=== PATIENT | female | born 1995 | race Two or more races ===

== ENCOUNTER 2019-01-16 16:10 | Emergency (ER) | payer MEDICAID ==
[~2019-01-16] VITALS: Ht 160 cm; Wt 91.0 kg
[2019-01-16 16:19] VITALS: BP 114/72
[2019-01-16] MEDS ORDERED: SODIUM CHLORIDE FLUSH 10ML SYR IVF ONE (16:30)
[2019-01-16 17:03] LABS: BASOPHILS # (AUTO) 0.04 x10^3/uL (0-0.1); BASOPHILS % (AUTO) 0 % (0-1); EOSINOPHILS # (AUTO) 0.79 x10^3/uL (0-0.4); EOSINOPHILS % (AUTO) 8 % (1-7); LYMPHOCYTES # (AUTO) 1.46 x10^3/uL (1-3.4); LYMPHOCYTES % (AUTO) 14 % (22-44); MD NO; MEAN CORPUSCULAR HEMOGLOBIN 25.9 pg (27.0-34.8); MEAN CORPUSCULAR HGB CONC 31.7 g/dL (32.4-35.8); MEAN CORPUSCULAR VOLUME 81.7 fL (80-100); MONOCYTES # (AUTO) 0.45 x10^3/uL (0.2-0.8); MONOCYTES % (AUTO) 4 % (2-9); NEUTROPHILS # (AUTO) 7.84 x10^3/uL (1.8-6.8); NEUTROPHILS % (AUTO) 74 % (42-75); PLATELET COUNT 491 x10^3/uL (130-400); RED BLOOD COUNT 5.49 x10^6/uL (3.82-5.3); RED CELL DISTRIBUTION WIDTH 16.4 % (9.6-15.2)
[2019-01-16 17:04] LABS: ALBUMIN 3.8 g/dL (3.4-5.0); ANION GAP 6 mmol/L (5-15); CALCIUM 9.2 mg/dL (8.5-10.1); CHLORIDE 109 mmol/L (98-107); CREATININE 0.81 mg/dL (0.55-1.02)
--- NOTE | 2019-01-16 17:39 | NUR ---
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
--- NOTE | 2019-01-16 18:08 | NUR ---
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
--- NOTE | 2019-01-16 18:32 | NUR ---
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 PT LEFT WITHOUT BEING SEEN.
== END 2019-01-16 18:34 | disposition left against medical advice (07) ==
LOC: ED 18:28
DX: G43.909 Migraine, unspecified, not intractable, without status migrainosus (principal)
CPT/HCPCS: 36415; 80048; 82040; 84703; 85025; 99283